=== PATIENT | female | born 1980 | race Two or more races ===

== ENCOUNTER 2022-09-21 17:09 | Emergency (ER) | payer BC ==
[~2022-09-21] VITALS: Ht 160 cm; Wt 72.6 kg
[2022-09-21] MEDS ORDERED: ASPIRIN 81 MG TAB.CHEW PO ONE (17:30)
[2022-09-21] MEDS ORDERED: MORPHINE SULFATE 4 MG/1 ML DISP.SYRIN IV ONE (17:30)
[2022-09-21] MEDS ORDERED: ASPIRIN 81 MG TAB.CHEW ONE (17:37)
[2022-09-21] MEDS ORDERED: MORPHINE SULFATE 4 MG/1 ML DISP.SYRIN ONE (17:37)
[2022-09-21 17:59] LABS: HEMATOCRIT 36.2 % (31.2-41.9); MEAN CORPUSCULAR HEMOGLOBIN 27.1 uug (24.7-32.8); MEAN CORPUSCULAR VOLUME 81.1 fL (75.5-95.3); PLATELET COUNT (AUTO) 263 K/uL (179-408)
--- NOTE | 2022-09-21 18:03 | NUR ---
Pt to CT via TRIP joy noted.
[2022-09-21 18:09] LABS: CREATININE 0.6 mg/dL (0.6-1.3)
[2022-09-21 18:22] LABS: BILIRUBIN,TOTAL 0.7 mg/dL (0.2-1.0); TOTAL PROTEIN, SERUM 7.4 g/dL (6.4-8.2)
--- NOTE | 2022-09-21 19:06 | NUR ---
Patient ambulated to the bathroom independently
[2022-09-21] MEDS ORDERED: IV NORMAL SALINE 250 ML IV ONE (19:18)
[2022-09-21] MEDS ORDERED: SWABABLE VALVE TRANSFER SET EA MC ONE (19:18)
[2022-09-21] MEDS ORDERED: IOHEXOL 350 100 ML INFUS..BTL ONE (19:18)
[2022-09-21] MEDS ORDERED: IBUPROFEN 400 MG TABLET PO ONE (19:30)
[2022-09-21] MEDS ORDERED: ACETAMINOPHEN 325 MG TABLET PO ONE (19:30)
[2022-09-21] MEDS ORDERED: ACETAMINOPHEN 325 MG TABLET ONE (19:44)
[2022-09-21] MEDS ORDERED: IBUPROFEN 400 MG TABLET ONE (19:44)
--- NOTE | 2022-09-21 23:07 | NUR ---
Patient discharged to home in stable condition. Written and verbal after care instructions given. Patient verbalizes understanding of instructions. Stressed follow up or return to ER for worsening s/s. Patient is a/ox4, NAD noted, patient is ambulatory with steady gait
[2022-09-21 23:11] VITALS: BP 125/75
== END 2022-09-21 23:12 | disposition home or self-care (01) ==
LOC: ER 17:09
DX: R07.2 Precordial pain (principal); Z88.6 Allergy status to analgesic agent; Z87.19 Personal history of other diseases of the digestive system
CPT/HCPCS: 99285; 96374; 71275; 71045; 80053; 83880; 85025; 85610; 84484 ×2; 36415; 93005; Q9967; J2270; A4663